=== PATIENT | female | born 1975 | race African-American/Black ===

== ENCOUNTER 2018-05-28 04:12 | Emergency (ER) | payer MEDICAID ==
[~2018-05-28] VITALS: Ht 154.9 cm; Wt 59.0 kg
[~2018-05-28 04:12] MED LIST: GEODON; IRON
[2018-05-28] MEDS ORDERED: ONDANSETRON ODT 4 MG ONE (04:55)
[2018-05-28] MEDS ORDERED: ONDANSETRON ODT 4 MG PO ONE (05:00)
[2018-05-28 06:34] VITALS: BP 104/64
== END 2018-05-28 06:51 | disposition home or self-care (01) ==
LOC: ED 05:06
DX: L50.0 Allergic urticaria (principal)
CPT/HCPCS: 99283; J7512; Q0162

== ENCOUNTER 2019-06-25 04:20 | Emergency (ER) | payer MEDICAID ==
[~2019-06-25] VITALS: Ht 154.9 cm; Wt 69.0 kg
[2019-06-25] MEDS ORDERED: FAMOTIDINE 20 MG TABLET ONE (04:51)
[2019-06-25] MEDS ORDERED: FAMOTIDINE 20 MG TABLET PO ONE (05:00)
[2019-06-25 05:15] LABS: MICROSCOPIC AUTO
[2019-06-25 05:16] LABS: CULTURE INDICATED? NO
[2019-06-25] MEDS ORDERED: MAALOX/HYOSCYAMINE/LIDOCAINE 45 ML BTL ONE (05:36)
[2019-06-25 05:40] VITALS: BP 114/67
[2019-06-25] MEDS ORDERED: MAALOX/HYOSCYAMINE/LIDOCAINE 45 ML BTL PO ONE (06:00)
--- NOTE | 2019-06-25 06:03 | NUR ---
PT STATED "SHE FEELS BETTER AND IS READY TO GO HOME"
== END 2019-06-25 06:05 | disposition home or self-care (01) ==
LOC: ED 05:35
DX: T37.0X5A Adverse effect of sulfonamides, initial encounter (principal); Y92.89 Other specified places as the place of occurrence of the external cause
CPT/HCPCS: 81001; 99284; Q0177